=== PATIENT | male | born 1945 | race Caucasian/White ===

== ENCOUNTER 2021-11-20 23:20 | Emergency (ER) | payer OTHER ==
[~2021-11-20] VITALS: Ht 177.8 cm; Wt 70.8 kg
--- NOTE | 2021-11-20 23:32 | NUR ---
Dr Hurst at bedside, MSE in progress.
[2021-11-20] MEDS ORDERED: DIVA500T2 PO (23:36)
[2021-11-20] MEDS ORDERED: IV NORMAL SALINE 1000 ML BAG IV ONE (23:45)
[2021-11-21 00:05] LABS: CARBON DIOXIDE 30 mmol/L (21-32); CHLORIDE 97 mmol/L (98-107); GLUCOSE 95 mg/dL (74-106); POTASSIUM 4.4 mmol/L (3.5-5.1); UREA NITROGEN, BLOOD 14 mg/dL (7-18)
[2021-11-21 00:10] LABS: HEMATOCRIT 38.1 % (36.7-47.1); MEAN CORPUSCULAR HEMOGLOBIN 30.1 uug (23.8-33.4); MEAN CORPUSCULAR VOLUME 87.8 fL (73.0-96.2); PLATELET COUNT (AUTO) 186 K/uL (152-348)
[2021-11-21 00:13] LABS: NEUTROPHILS % (MANUAL) 0 % (42-75)
[2021-11-21 00:19] LABS: ALANINE AMINOTRANSFERASE 14 U/L (16-63); ALKALINE PHOSPHATASE 45 U/L (50-136); ASPARTATE AMINOTRANSFERASE 18 U/L (15-37); BILIRUBIN,DIRECT 0.1 mg/dL (0.0-0.2); BILIRUBIN,TOTAL 0.5 mg/dL (0.2-1.0); TOTAL PROTEIN, SERUM 6.8 g/dL (6.4-8.2)
[2021-11-21] MEDS ORDERED: IV NORMAL SALINE 1000 ML BAG IV ONE (01:15)
--- NOTE | 2021-11-21 02:21 | NUR ---
Called [facility]
--- NOTE | 2021-11-21 06:04 | NUR ---
Report given to Glory AUGUSTIN at [place]
--- NOTE | 2021-11-21 06:05 | NUR ---
[facility] here for transfer to [facility].
== END 2021-11-21 06:29 | disposition short-term general hospital (02) ==
LOC: ER 23:24
DX: U07.1 COVID-19 (principal); R53.1 Weakness; E86.0 Dehydration; R26.2 Difficulty in walking, not elsewhere classified
CPT/HCPCS: 36415 ×2; 71045; 80048; 80076; 83880; 84484 ×2; 85007; 85025; 87426; 93005; 96360; 96361; 99285; J7040 ×2; 70030-TC; A4663